=== PATIENT | female | born 1945 | race Caucasian/White ===

== ENCOUNTER 2016-07-19 12:59 | Inpatient (IN) | payer MEDICARE ==
[2016-07-19] MEDS ORDERED: ONDANSETRON HCL 4 MG/2 ML VIAL IV ONE (13:33)
[2016-07-19] MEDS ORDERED: NS 1,000 ML IV ONE (13:33)
[2016-07-19] MEDS ORDERED: SODIUM CHLORIDE 0.9% 10 ML FLUSH FLUSH PRN (13:33)
[2016-07-19] MEDS ORDERED: MORPHINE 4 MG/ML INJECTION IV ONE (13:33)
--- NOTE | 2016-07-19 13:36 | EDPRACDOC ---
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 Denies fever, earache, sore throat, congestion, cp, sob, abd pain, changes in bowel or bladder, rash. Pain Location: Reports: Lumbar Pain Radiates To: Reports: None Pain Caused By: Reports: Spontaneous Circumstances: Reports: Unknown Currently ?: No Pain Severity: Reports: Moderate Pain Quality: Reports: Aching Worsened By: Reports: Nothing Associated Signs and Symptoms: Reports: None <Michelle Valvedre - Last Filed: 07/19/16 15:54> <Jack Aguilar - Last Filed: 07/19/16 16:14> - General Information Chief Complaint: Back Pain Stated Complaint: BACK,FLANK PAIN Time Seen by Provider: 07/19/16 13:26 Home Medications: Home Medications Alprazolam 0.5 mg PO QID PRN 12/21/14 Fenofibrate 160 mg PO DAILY 12/21/14 Haloperidol 2 mg PO TID 12/21/14 Pravastatin Sodium 80 mg PO HS 12/21/14 Sertraline HCl 150 mg PO DAILY 12/21/14 Trazodone HCl 150 mg PO QHS 12/21/14 Verapamil HCl [Verapamil ER] 240 mg PO DAILY 12/21/14 Levothyroxine [Synthroid, Levoxyl] 125 mcg PO DAILY #30 tablet 01/01/15 Insulin Novolog 70/30 Mix [Novolog 70-30 Insulin Mix] 30 unit SQ BID 05/04/15 Amitriptyline HCl 150 mg PO QHS 03/30/16 Gabapentin 300 mg PO BID 03/30/16 Lisinopril [Zestril] 10 mg PO DAILY 03/30/16 Omeprazole [Prilosec] 20 mg PO DAILY 03/30/16 Trimethoprim 200 mg PO QHS 03/30/16 Zolpidem Tartrate [Ambien] 5 mg PO QHS PRN 07/19/16 Allergies/Adverse Reactions: Allergies Allergy/AdvReac Type Severity Reaction Status Date / Time Sulfa (Sulfonamide Allergy Mild RASH Verified 05/04/15 23:09 Antibiotics) [Sulfa(Sulfonamide Antibiotics)] ED Past Medical History - History Reviewed Yes Nurses notes reviewed and agree except as marked - Patient Medical History Neurological History: Reports: Dementia (Associated with behavioral issues, psychoses and hallucinations.) Cardiac History: Reports: Hypertension, Congestive Heart Failure, Cardiac Catheterization, Hypercholesterolemia Respiratory History: Reports: Asthma, COPD GI/ History: Reports: Urinary Tract Infection, Gastroesophageal Reflux Musculoskeletal History: Reports: Arthritis Psychological History: Reports: Anxiety, Schizophrenia (Verses dementia with behavioral issues as noted above.). Denies: Depression, Substance Use Disorder Systemic History: Reports: Anemia, Diabetes (type 2.), Hypothyroidism Surgical History: Reports: Hysterectomy, Cardiac Catheterization, Tonsillectomy/ Adnoidectomy ( CHILD), Other (None known.) - Family Medical History Reports: Hypertension, Diabetes, Cancer (BROTHER), Cardiac Disorders. Denies: Stroke - Social Medical History Smoking Status: Never smoker Social History: Denies: Substance Use Disorder ETOH: None Substance Abuse: None <Michelle Valverde - Last Filed: 07/19/16 15:54> EDM Review of Systems - Review of Systems Constitutional: Weakness Ears: No Symptoms Reported. negative: Pain, Hearing Loss, Drainage, Ear Pulling Throat: No Symptoms Reported. negative: Pain, Swelling Nose: No Symptoms Reported. negative: Congestion, Bleeding, Discharge, Injection, Swelling, Deformity, Ecchymosis, Tender, Abrasion, Laceration Mouth: No Symptoms Reported. negative: Pain, Drooling Respiratory: Cough Cardiovascular: No Symptoms Reported. negative: Chest Pain, Palpitations, Syncope, Edema, Orthopnea, PND, Skin Mottling, Cyanosis Gastrointestinal: No Symptoms Reported. negative: Pain, Constipation, Nausea, Vomiting, Diarrhea, Melena, Formula Intolerance Genitourinary: Flank Pain. negative: No Symptoms Reported, Bleeding, Dysuria, Discharge, Frequency, Hematuria, , Testicular Pain Neurological: No Symptoms Reported. negative: Headache, Dizziness, Seizure, Numbness, Weakness, Speech Difficulty, Gait Difficulty Musculoskeletal: Back Integumentary: No Symptoms Reported. negative: Itching, Rash, Bruising, Wound Allergic/Immunologic: No Symptoms Reported. negative: Hives, Itching Hematologic: No Symptoms Reported. negative: Lymphadenopathy, Easy Bruising, Easy Bleeding Psychiatric: No Symptoms Reported. negative: Anxiety, Depression, Hallucinations, Insomnia, Suicidal <Michelle Valverde - Last Filed: 07/19/16 15:54> - Physical Exam Constitutional: Alert Oriented to: Time, Person, Place Last recorded Vital Signs: Last Vital Signs Temp Pulse 81 07/19/16 13:09 Resp 16 07/19/16 13:09 BP 217/89 H 07/19/16 13:09 Pulse Ox 95 07/19/16 13:09 Oxygen Pulse Oxygen Saturation 95 O2 Device Oxygen Flow Rate Fraction of Inspired Oxygen ( FIO2) - HEENT Head: Normal ( normocephalic) Eye Exam: Normal (PERRL, EOMI, Sclera white) Oropharynx: Normal (Pharynx:Moist without exudate,Gums-no swelling) Tympanic Membrane: Normal ENT EAC: Normal Nose: No Symptoms Reported (septum midline) Neck: Normal (FROM, trachea at midline) - Respiratory/Cardiovascular Respiratory: Normal - CTA (BBS clear to auscultation without adventitious sounds ) Cardiovascular: Normal (RRR without murmur, gallop or rub) - GI Auscultation: Normal (NABS) Palpation: Normal (Soft,No rebound or guarding, non distended) Tenderness: Mild, Suprapubic - Musculoskeletal Back: Normal (Non-Tender) Extremities: Normal (Normal tone, Pulses 2+ No cyanosis or edema, FROM) - Integumentary Skin: Normal, Warm, Dry Lymphatics: Normal (no adenopathy) - Neurologic Memory Impaired: Normal Motor Function: Normal (Normal tone, Pulses 2+ No cyanosis or edema, FROM) Mood Description: Normal Perception: Normal <Michelle Valverde - Last Filed: 07/19/16 15:54> - Physical Exam Last recorded Vital Signs: Last Vital Signs Temp 98.9 F 07/19/16 14:46 Pulse 88 07/19/16 14:46 Resp 18 07/19/16 14:46 BP 170/76 07/19/16 14:46 Pulse Ox 96 07/19/16 14:46 Oxygen Pulse Oxygen Saturation 96 O2 Device Oxygen Flow Rate Fraction of Inspired Oxygen ( FIO2) <Jack Aguilar - Last Filed: 07/19/16 16:14> ED Back Exam - Neurologic Motor Deficit: None (strength 5/5, sensation nl) Reflexes: Normal (CN II-X11 intact) - Musculoskeletal Cervical: Normal Thoracic: Normal Lumbar: Normal Midline: Normal Paraspinous: Normal Straight Leg Raise: Negative Pelvis: Normal <Michelle aVlverde - Last Filed: 07/19/16 15:54> - Differential Diagnosis Musculoskeletal pain, Other (PNA, sepsis), Pyelonephritis, Strain, Urinary tract infection - Results 07/19/16 13:10 07/19/16 13:10 - EKG EKG #1 EKG Time: 13:47 Rate: bpm: 83 [place]: Normal Rhythm: NSR Block: None ST: Normal - Diagnostic Imaging Chest Image interpreted by: Radiologist IMPRESSION: No evidence of pulmonary emboli. No focal infiltrate or sizable effusion is seen. <Michelle Valverde - Last Filed: 07/19/16 15:54> - Results 07/19/16 13:10 07/19/16 13:10 WBC 5.3 xk/uL (3.8-10.8) 07/19/16 13:10 RBC 4.26 xM/uL (4.20-5.40) 07/19/16 13:10 Hgb 12.5 g/dL (12.0-16.0) 07/19/16 13:10 Hct 37.2 % (36-47) 07/19/16 13:10 MCV 87 fL (81-99) 07/19/16 13:10 MCH 29.4 pg (27-32) 07/19/16 13:10 MCHC 33.7 g/dl (33-36) 07/19/16 13:10 RDW 13.3 % (11.5-14.5) 07/19/16 13:10 Plt Count 242 xk/uL (130-400) 07/19/16 13:10 MPV 8.6 fL (7.4-10.4) 07/19/16 13:10 Neut % (Auto) 57.5 % (45-76) 07/19/16 13:10 Lymph % (Auto) 30.6 % (17-44) 07/19/16 13:10 [place] % (Auto) 6.8 % (3-10) 07/19/16 13:10 Eos % (Auto) 4.3 % (0-5) 07/19/16 13:10 Baso % (Auto) 0.8 % (0-2) 07/19/16 13:10 Absolute Neuts (auto) 3.02 xk/uL (1.7-8.2) 07/19/16 13:10 Absolute Lymphs (auto) 1.59 xk/uL (0.65-4.75) 07/19/16 13:10 PT 10.4 SEC (9.2-11.2) 07/19/16 13:10 INR 1.0 07/19/16 13:10 APTT 27.3 SEC (22-35) 07/19/16 13:10 Puncture Site Right radial 07/19/16 13:55 pH 7.440 pH UNITS (7.35-7.45) 07/19/16 13:55 pCO2 47.0 mmHg (35-45) H 07/19/16 13:55 pO2 56.0 mmHg (80-100) L 07/19/16 13:55 HCO3 31.9 MMOL/L (22-26) H 07/19/16 13:55 Total CO2 33.3 MMOL/L (23-27) H 07/19/16 13:55 Base Excess 6.6 (+/- 2) H 07/19/16 13:55 FiO2 % 21% 07/19/16 13:55 Specimen Drawn By Roude 07/19/16 13:55 Sodium 134 mEq/L (137-146) L 07/19/16 13:10 Potassium 4.2 mEq/L (3.5-5.1) 07/19/16 13:10 Chloride 92 mEq/L (98-107) L 07/19/16 13:10 Carbon Dioxide 31 mMOL/L (22-33) 07/19/16 13:10 Anion Gap 15 mEq/L (8-16) 07/19/16 13:10 BUN 8 MG/DL (7-17) 07/19/16 13:10 Creatinine 0.80 MG/DL (0.52-1.04) 07/19/16 13:10 Estimated GFR (MDRD) > 60 mL/min (>=60) 07/19/16 13:10 Glucose 159 MG/DL (70-99) H 07/19/16 13:10 Calculated Osmolality 259 MOs/Kg (270-290) L 07/19/16 13:10 Lactic Acid 0.8 mEq/L (0.7-2.1) 07/19/16 13:10 Calcium 9.9 MG/DL (8.4-10.2) 07/19/16 13:10 Total Bilirubin 0.7 MG/DL (0.2-1.3) 07/19/16 13:10 AST 29 IU/L (14-36) 07/19/16 13:10 ALT 29 IU/L (9-52) 07/19/16 13:10 Alkaline Phosphatase 72 IU/L (55-165) 07/19/16 13:10 Creatine Kinase 36 IU/L (30-134) 07/19/16 13:10 Troponin I < 0.01 ng/mL (<.04) 07/19/16 13:10 Sfd-[id number]-Llcdnqhqcmh Pept 165 pg/mL (0-900) 07/19/16 13:10 Total Protein 7.9 G/DL (6.3-8.2) 07/19/16 13:10 Albumin 4.5 G/DL (3.5-5.0) 07/19/16 13:10 Urine Color Bright yellow 07/19/16 13:17 Urine Clarity Clear 07/19/16 13:17 Urine pH 8.0 (5.0-8.0) 07/19/16 13:17 Ur Specific [place] 1.005 (1.003-1.035) 07/19/16 13:17 Urine Protein Neg (NEG/TRACE) 07/19/16 13:17 Urine Glucose (UA) Trace (NEGATIVE) 07/19/16 13:17 Urine Ketones Neg (NEGATIVE) 07/19/16 13:17 Urine Occult Blood 1+ (NEG/TRACE) H 07/19/16 13:17 Urine Nitrite Pos (NEGATIVE) H 07/19/16 13:17 Urine Bilirubin Neg (NEGATIVE) 07/19/16 13:17 Urine Urobilinogen <2.0 MG/DL (0-1) 07/19/16 13:17 Ur Leukocyte Esterase 1+ (NEGATIVE) H 07/19/16 13:17 Urine RBC 0-2 (0-5) 07/19/16 13:17 Urine WBC 10-20 (0-5) H 07/19/16 13:17 Ur Epithelial Cells Occ 07/19/16 13:17 Urine Bacteria 4+ (NEG/FEW) H 07/19/16 13:17 Lab Results 07/19/16 07/19/16 07/19/16 13:55 13:17 13:10 WBC RBC Hgb Hct MCV MCH MCHC RDW Plt Count MPV Neut % (Auto) Lymph % (Auto) [place] % (Auto) Eos % (Auto) Baso % (Auto) Absolute Neuts (auto) Absolute Lymphs (auto) PT 10.4 INR 1.0 APTT 27.3 Puncture Site Right radial pH 7.440 pCO2 47.0 H pO2 56.0 L HCO3 31.9 H Total CO2 33.3 H Base Excess 6.6 H FiO2 % 21% Specimen Drawn By Roude Sodium Potassium Chloride Carbon Dioxide Anion Gap BUN Creatinine Estimated GFR (MDRD) Glucose Calculated Osmolality Lactic Acid Calcium Total Bilirubin AST ALT Alkaline Phosphatase Creatine Kinase Troponin I Job-C-Mpspcxkxaem Pept Total Protein Albumin Urine Color Bright yellow Urine Clarity Clear Urine pH 8.0 Ur Specific [place] 1.005 Urine Protein Neg Urine Glucose (UA) Trace Urine Ketones Neg Urine Occult Blood 1+ H Urine Nitrite Pos H Urine Bilirubin Neg Urine Urobilinogen <2.0 Ur Leukocyte Esterase 1+ H Urine RBC 0-2 Urine WBC 10-20 H Ur Epithelial Cells Occ Urine Bacteria 4+ H 07/19/16 07/19/16 07/19/16 13:10 13:10 13:10 WBC 5.3 RBC 4.26 Hgb 12.5 Hct 37.2 MCV 87 MCH 29.4 MCHC 33.7 RDW 13.3 Plt Count 242 MPV 8.6 Neut % (Auto) 57.5 Lymph % (Auto) 30.6 [place] % (Auto) 6.8 Eos % (Auto) 4.3 Baso % (Auto) 0.8 Absolute Neuts (auto) 3.02 Absolute Lymphs (auto) 1.59 PT INR APTT Puncture Site pH pCO2 pO2 HCO3 Total CO2 Base Excess FiO2 % Specimen Drawn By Sodium 134 L Potassium 4.2 Chloride 92 L Carbon Dioxide 31 Anion Gap 15 BUN 8 Creatinine 0.80 Estimated GFR (MDRD) > 60 Glucose 159 H Calculated Osmolality 259 L Lactic Acid 0.8 Calcium 9.9 Total Bilirubin 0.7 AST 29 ALT 29 Alkaline Phosphatase 72 Creatine Kinase 36 Troponin I < 0.01 Zws-D-Lxadyyjdutm Pept 165 Total Protein 7.9 Albumin 4.5 Urine Color Urine Clarity Urine pH Ur Specific [place] Urine Protein Urine Glucose (UA) Urine Ketones Urine Occult Blood Urine Nitrite Urine Bilirubin Urine Urobilinogen Ur Leukocyte Esterase Urine RBC Urine WBC Ur Epithelial Cells Urine Bacteria <Aguilar,Jack - Last Filed: 07/19/16 16:14> <Michelle Valverde - Last Filed: 07/19/16 15:54> - Departure Yes I personally saw and evaluated the patient. Disposition: Admit IP To This Hospital Education/Counseling Given To: Patient Education/Counseling Given Regarding: Diagnosis, Treatment, Prognosis Decision to Admit Time: 16:14 Decision to admit date: 07/19/16 Decision to admit: from ED <Jack Aguilar - Last Filed: 07/19/16 16:14> - Departure Condition: Fair Final Diagnosis: Hypoxia UTI (urinary tract infection) Qualifiers: Urinary tract infection type: acute cystitis Hematuria presence: without hematuria Qualified Code(s): N30.00 - Acute cystitis without hematuria COPD (chronic obstructive pulmonary disease) Qualifiers: COPD type: unspecified COPD Qualified Code(s): J44.9 - Chronic obstructive pulmonary disease, unspecified Altered mental status Qualifiers: Altered mental status type: delirium Qualified Code(s): R41.0 - Disorientation , unspecified Instructions: Urinary Tract Infection in Women (ED), Dysuria Referrals: Cecilia Jose MD [Primary Care Provider] - One Week Prescriptions: No Action Pravastatin Sodium 80 mg PO HS Haloperidol 2 mg PO TID Alprazolam 0.5 mg PO QID PRN PRN Reason: Anxiety Sertraline HCl 150 mg PO DAILY Verapamil HCl [Verapamil ER] 240 mg PO DAILY Trazodone HCl 150 mg PO QHS Fenofibrate 160 mg PO DAILY Levothyroxine [Synthroid, Levoxyl] 125 mcg PO DAILY #30 tablet Insulin Novolog 70/30 Mix [Novolog 70-30 Insulin Mix] 30 unit SQ BID Lisinopril [Zestril] 10 mg PO DAILY Gabapentin 300 mg PO BID Amitriptyline HCl 150 mg PO QHS Trimethoprim 200 mg PO QHS Omeprazole [Prilosec] 20 mg PO DAILY Zolpidem Tartrate [Ambien] 5 mg PO QHS PRN PRN Reason: Sleep Or Insomnia
[2016-07-19 13:48] LABS: AUTOMATED BASOPHIL 0.8 % (0-2); AUTOMATED EOSINOPHIL 4.3 % (0-5); AUTOMATED LYMPH 30.6 % (17-44); AUTOMATED MONOCYTE 6.8 % (3-10); AUTOMATED NEUTROPHIL 57.5 % (45-76); MPV 8.6 fL (7.4-10.4)
[2016-07-19 13:56] LABS: BLOOD UREA NITROGEN 8 MG/DL (7-17); CALCIUM 9.9 MG/DL (8.4-10.2); CALCULATED OSMOLALITY 259 MOs/Kg (270-290); CHLORIDE 92 mEq/L (98-107); CPK TOTAL WITH POSSIBLE MB 36 IU/L (30-134); GLUCOSE 159 MG/DL (70-99); SODIUM LEVEL 134 mEq/L (137-146); TOTAL PROTEIN 7.9 G/DL (6.3-8.2)
[2016-07-19 14:00] LABS: PARTIAL THROMB. TIME 27.3 SEC (22-35)
[2016-07-19] MEDS ORDERED: NS 1,000 ML IV SCH (14:00)
[2016-07-19 14:01] LABS: ABG Draw Site Right Radial; ALLEN'S TEST PASS; BEb 6.6 (+/- 2); TCO2 33.3 MMOL/L (23-27)
[2016-07-19 14:10] LABS: LEUKOCYTES/URINE 1+ (NEGATIVE); RBC/URINE 0-2 (0-5); URINE OCCULT BLOOD 1+ (NEG/TRACE)
[2016-07-19 14:23] LABS: NITRITE/URINE POS (NEGATIVE)
--- NOTE | 2016-07-19 14:34 | DIRPT ---
CLINICAL DATA: Low back pain and difficulty urinating, possible sepsis EXAM: PORTABLE CHEST 1 VIEW COMPARISON: 03/30/2016 FINDINGS: The heart size and mediastinal contours are within normal limits. Both lungs are clear. The visualized skeletal structures are unremarkable. IMPRESSION: No active disease. Electronically Signed By: Nate Persaud M.D. On: 07/19/2016 14:31
[2016-07-19] MEDS ORDERED: Pharmacy Review for Metformin - IV Contrast Given SCH (15:00)
[2016-07-19] MEDS ORDERED: CEFTRIAXONE 1 GM in D5W 100 ML IV ONE (15:15)
--- NOTE | 2016-07-19 15:45 | DIRPT ---
CLINICAL DATA: Chest and back pain for 1 day EXAM: CT ANGIOGRAPHY CHEST WITH CONTRAST TECHNIQUE: Multidetector CT imaging of the chest was performed using the standard protocol during bolus administration of intravenous contrast. Multiplanar CT image reconstructions and MIPs were obtained to evaluate the vascular anatomy. CONTRAST: 100 mL Isovue 370. COMPARISON: Chest x-ray from earlier in the same day FINDINGS: The lungs are well aerated bilaterally. No focal infiltrate or sizable effusion is noted. The thoracic inlet is within normal limits. The thoracic aorta shows aortic calcifications without aneurysmal dilatation or focal dissection. Pulmonary artery shows a normal branching pattern without evidence of pulmonary emboli. No hilar or mediastinal adenopathy is noted. Mild coronary calcifications are seen. Scanning into the upper abdomen reveals no acute abnormality. Bony structures show degenerative change of the thoracic spine. No acute bony abnormality is noted. Review of the MIP images confirms the above findings. IMPRESSION: No evidence of pulmonary emboli. No focal infiltrate or sizable effusion is seen. Electronically Signed By: Nate Persaud M.D. On: 07/19/2016 15:42
[2016-07-19] MEDS ORDERED: Albuterol/Ipratropium Neb 3 ML NEB NEB PRN (16:51)
[2016-07-19] MEDS ORDERED: Docusate Sodium 100 MG CAP PO PRN (16:51)
[2016-07-19] MEDS ORDERED: MAGNESIUM HYDROXIDE 30 ML BOTTLE PO PRN (16:51)
[2016-07-19] MEDS ORDERED: ZOLPIDEM TARTRATE 5 MG TAB PO PRN (16:51)
[2016-07-19] MEDS ORDERED: GUAIFENESIN 200 MG/10 ML UDC PO PRN (16:51)
[2016-07-19] MEDS ORDERED: BENZONATATE 100 MG PERLES PO PRN (16:51)
[2016-07-19] MEDS ORDERED: GLUCAGON 1 MG VIAL SQ PRN (16:51)
[2016-07-19] MEDS ORDERED: DEXTROSE 25 GM/50 ML PFS IV PRN (16:51)
[2016-07-19] MEDS ORDERED: ONDANSETRON HCL 4 MG/2 ML VIAL IV PRN (16:51)
--- NOTE | 2016-07-19 16:51 | HISTPHYS ---
- Chief Complaint altered mental status, weakness - History of Present Illness Ms Beauchamp is a 71-year-old white female with multiple chronic medical problems who is brought to the emergency room by her with several days of worsening mental status and declining ambulatory function. He says this is similar to admission to the hospital back in March when she had a urinary tract infection and became very weak. At that time she had to go for short- term rehab post discharge. She has been home and has been ambulatory up until this past week. He says baseline her cognitive status is normal. In the emergency room she does have a urinary tract infection. She is confused and unable to provide any history. Given her mental status changes and urinary tract infection she will be admitted to the hospital for further evaluation and management - Medical History Cardiac History: Reports: Hypertension, Congestive Heart Failure, Cardiac Catheterization, Hypercholesterolemia Respiratory History: Reports: Asthma, COPD GI/ History: Reports: Urinary Tract Infection, Gastroesophageal Reflux Musculoskeletal History: Reports: Arthritis Systemic History: Reports: Anemia, Diabetes (type 2.), Hypothyroidism Neurological History: Reports: Dementia (Associated with behavioral issues, psychoses and hallucinations.) Psychological History: Reports: Anxiety, Schizophrenia (Verses dementia with behavioral issues as noted above.). Denies: Depression, Substance Use Disorder - Surgical History Reports: Hysterectomy, Cardiac Catheterization, Tonsillectomy/Adnoidectomy ( CHILD), Other (None known.) - Medictions/Allergies Allergies Sulfa (Sulfonamide Antibiotics) [Sulfa(Sulfonamide Antibiotics)] Allergy (Mild, Verified 05/04/15 23:09) RASH Home Medications Alprazolam 0.5 mg PO QID PRN 12/21/14 Fenofibrate 160 mg PO DAILY 12/21/14 Haloperidol 2 mg PO TID 12/21/14 Pravastatin Sodium 80 mg PO HS 12/21/14 Sertraline HCl 150 mg PO DAILY 12/21/14 Trazodone HCl 150 mg PO QHS 12/21/14 Verapamil HCl [Verapamil ER] 240 mg PO DAILY 12/21/14 Levothyroxine [Synthroid, Levoxyl] 125 mcg PO DAILY #30 tablet 01/01/15 Insulin Novolog 70/30 Mix [Novolog 70-30 Insulin Mix] 30 unit SQ BID 05/04/15 Amitriptyline HCl 150 mg PO QHS 03/30/16 Gabapentin 300 mg PO BID 03/30/16 Lisinopril [Zestril] 10 mg PO DAILY 03/30/16 Omeprazole [Prilosec] 20 mg PO DAILY 03/30/16 Trimethoprim 200 mg PO QHS 03/30/16 Zolpidem Tartrate [Ambien] 5 mg PO QHS PRN 07/19/16 - Family History Reports: Hypertension, Diabetes, Cancer (BROTHER), Cardiac Disorders. Denies: Stroke - Social History Lives: with Spouse Smoking Status: Never smoker Social History: Denies: Alcohol Use, Substance Use Disorder - Review of Systems Yes Review of systems cannot be obtained due to the patient's medical condition (Altered mental status) Constitutional: Weakness - Physical Exam Constitutional: Alert, Distress. negative: Well appearing (Acutely ill- appearing) Oriented to: Person, Not Oriented Exam: Last Vital Signs Temp 98.9 F 07/19/16 14:46 Pulse 88 07/19/16 14:46 Resp 18 07/19/16 14:46 BP 170/76 07/19/16 14:46 Pulse Ox 96 07/19/16 14:46 Intake & Output 07/19/16 07/19/16 07/19/16 07:59 15:59 23:59 Patient's weight 83.007 kg - HEENT Head: Normal ( normocephalic) Eye: Normal (PERRL, EOMI, Sclera white) Oropharynx: Normal (Pharynx:Moist without exudate,Gums-no swelling) Tympanic Membrane: Normal ENT EAC: Normal Nose: No Symptoms Reported (septum midline) - Respiratory/Cardiovascular Respiratory: Normal - CTA (BBS clear to auscultation without adventitious sounds ). negative: Rhonchi Cardiovascular: Normal - GI Auscultation: Normal (NABS) Palpation: Normal (Soft,No rebound or guarding, non distended) Tenderness: Mild, Suprapubic - Musculoskeletal Back: Normal (Non-Tender). negative: Abrasion Extremities: Normal (Normal tone, Pulses 2+ No cyanosis or edema, FROM) - Integumentary Skin: Normal, Warm, Dry Lymphatics: Normal (no adenopathy). negative: Adenopathy - Neurologic Memory Impaired: Short-term. negative: Long-term Motor Function: Normal Cranial Nerve: Normal Cerebellar: Normal Mood Description: Normal Thought: Coherent Perception: Normal - Focused CV Perfusion Exam Vital Signs: Last Vital Signs Temp 98.9 F 07/19/16 14:46 Pulse 88 07/19/16 14:46 Resp 18 07/19/16 14:46 BP 170/76 07/19/16 14:46 Pulse Ox 96 07/19/16 14:46 - Lab Results Laboratory Results - last 24 hr 07/19/16 07/19/16 07/19/16 13:10 13:10 13:10 WBC 5.3 RBC 4.26 Hgb 12.5 Hct 37.2 MCV 87 MCH 29.4 MCHC 33.7 RDW 13.3 Plt Count 242 MPV 8.6 Neut % (Auto) 57.5 Lymph % (Auto) 30.6 [place] % (Auto) 6.8 Eos % (Auto) 4.3 Baso % (Auto) 0.8 Absolute Neuts (auto) 3.02 Absolute Lymphs (auto) 1.59 PT INR APTT Puncture Site pH pCO2 pO2 HCO3 Total CO2 Base Excess FiO2 % Specimen Drawn By Sodium 134 L Potassium 4.2 Chloride 92 L Carbon Dioxide 31 Anion Gap 15 BUN 8 Creatinine 0.80 Estimated GFR (MDRD) > 60 Glucose 159 H Calculated Osmolality 259 L Lactic Acid 0.8 Calcium 9.9 Total Bilirubin 0.7 AST 29 ALT 29 Alkaline Phosphatase 72 Creatine Kinase 36 Troponin I < 0.01 Ihs-S-Yjhlagkqpwk Pept 165 Total Protein 7.9 Albumin 4.5 Urine Color Urine Clarity Urine pH Ur Specific [place] Urine Protein Urine Glucose (UA) Urine Ketones Urine Occult Blood Urine Nitrite Urine Bilirubin Urine Urobilinogen Ur Leukocyte Esterase Urine RBC Urine WBC Ur Epithelial Cells Urine Bacteria 07/19/16 07/19/16 07/19/16 13:10 13:17 13:55 WBC RBC Hgb Hct MCV MCH MCHC RDW Plt Count MPV Neut % (Auto) Lymph % (Auto) [place] % (Auto) Eos % (Auto) Baso % (Auto) Absolute Neuts (auto) Absolute Lymphs (auto) PT 10.4 INR 1.0 APTT 27.3 Puncture Site Right radial pH 7.440 pCO2 47.0 H pO2 56.0 L HCO3 31.9 H Total CO2 33.3 H Base Excess 6.6 H FiO2 % 21% Specimen Drawn By Roude Sodium Potassium Chloride Carbon Dioxide Anion Gap BUN Creatinine Estimated GFR (MDRD) Glucose Calculated Osmolality Lactic Acid Calcium Total Bilirubin AST ALT Alkaline Phosphatase Creatine Kinase Troponin I Izx-Z-Wizrztayeow Pept Total Protein Albumin Urine Color Bright yellow Urine Clarity Clear Urine pH 8.0 Ur Specific [place] 1.005 Urine Protein Neg Urine Glucose (UA) Trace Urine Ketones Neg Urine Occult Blood 1+ H Urine Nitrite Pos H Urine Bilirubin Neg Urine Urobilinogen <2.0 Ur Leukocyte Esterase 1+ H Urine RBC 0-2 Urine WBC 10-20 H Ur Epithelial Cells Occ Urine Bacteria 4+ H - Assessment (1) Metabolic encephalopathy G93.41 - METABOLIC ENCEPHALOPATHY Acute Present on Admission: Yes Very confused and unable to provide any history. Likely due to urinary tract infection. IV fluids and supportive care. IV antibiotics (2) UTI (urinary tract infection) N39.0 - URINARY TRACT INFECTION, SITE NOT SPECIFIED Acute Present on Admission: Yes Qualifiers: Urinary tract infection type: acute cystitis Hematuria presence: without hematuria Indwelling urinary catheter type: I Encounter type: E Qualified Code(s): N30.00 - Acute cystitis without hematuria IV Rocephin. IV fluids and monitor cultures. Likely the source of mental status changes and hopefully will improve with hydration and treatment (3) Hypoxia R09.02 - HYPOXEMIA Acute Present on Admission: Yes Suspect that this is due to infection chronic medications. CT of chest shows no acute abnormalities. (4) COPD (chronic obstructive pulmonary disease) J44.9 - CHRONIC OBSTRUCTIVE PULMONARY DISEASE, UNSPECIFIED Acute Present on Admission: Yes Qualifiers: COPD type: unspecified COPD Chronic bronchitis type: C Emphysema type: E Qualified Code(s): J44.9 - Chronic obstructive pulmonary disease, unspecified No symptoms at present however she is moderately hypoxic. Continue current medications, nebulizer treatments as needed. Oxygen support
[2016-07-19] MEDS ORDERED: NOVOLOG 70/30 MIX 100 UNITS/ML PEN SQ SCH (18:00)
[2016-07-19 18:05] VITALS: BMI 33.1
[2016-07-19] MEDS: NS/KCl 20 mEq 1,000 ML IV SCH (18:18)
[2016-07-19] MEDS: REGULAR INSULIN 100 UNITS/ML - 3 ML VIAL SQ SCH ×2 (18:22→20:40)
[2016-07-19] MEDS: ENOXAPARIN 40 MG/0.4 ML PFS SQ SCH (18:22)
[2016-07-19] MEDS: NOVOLOG 70/30 MIX 100 UNITS/ML PEN SQ SCH (18:22)
[2016-07-19] MEDS ORDERED: Vaccine Screening Complete SCH (19:00)
[2016-07-19] MEDS: GABAPENTIN 300 MG CAP PO SCH (20:34)
[2016-07-19] MEDS: TRAZODONE 50 MG TAB PO SCH (20:35)
[2016-07-19] MEDS: HALOPERIDOL 1 MG TAB PO SCH (20:35)
[2016-07-19] MEDS: PRAVASTATIN 80 MG TABLET PO SCH (20:35)
[2016-07-19] MEDS: AMITRIPTYLINE 50 MG TAB PO SCH (20:35)
[2016-07-19] MEDS: ACETAMINOPHEN 325 MG/TAB TABLET PO PRN (20:38)
[2016-07-19] MEDS ORDERED: AMITRIPTYLINE HCL 150 MG PO SCH (21:00)
[2016-07-19] MEDS ORDERED: HALOPERIDOL 2 MG PO SCH (21:00)
[2016-07-19] MEDS ORDERED: INSULIN ASPART PROTAMINE SQ SCH (21:00)
[2016-07-19] MEDS ORDERED: INSULIN ASPART SQ SCH (21:00)
[2016-07-19] MEDS ORDERED: [UNRECOGNIZED DRUG - OTHER] SQ SCH (21:00)
[2016-07-20] MEDS: NS/KCl 20 mEq 1,000 ML IV SCH ×5 (04:07→21:09)
[2016-07-20] MEDS: HALOPERIDOL 1 MG TAB PO SCH ×3 (05:31→20:44)
[2016-07-20] MEDS: LEVOTHYROXINE 125 MCG (0.125 MG) TAB PO SCH (05:31)
[2016-07-20] MEDS: PANTOPRAZOLE 40 MG TAB PO SCH (05:31)
[2016-07-20] MEDS: REGULAR INSULIN 100 UNITS/ML - 3 ML VIAL SQ SCH ×4 (05:32→20:45)
[2016-07-20] MEDS: NOVOLOG 70/30 MIX 100 UNITS/ML PEN SQ SCH ×2 (05:36→17:20)
[2016-07-20 07:19] LABS: MPV 8.5 fL (7.4-10.4)
[2016-07-20 07:41] LABS: BLOOD UREA NITROGEN 11 MG/DL (7-17); CALCIUM 8.5 MG/DL (8.4-10.2); CALCULATED OSMOLALITY 260 MOs/Kg (270-290); CHLORIDE 102 mEq/L (98-107); GLUCOSE 78 MG/DL (70-99); SODIUM LEVEL 136 mEq/L (137-146)
[2016-07-20] MEDS: Verapamil 120 MG TAB PO SCH (08:33)
[2016-07-20] MEDS: LISINOPRIL 10 MG TAB PO SCH (08:33)
[2016-07-20] MEDS: SERTRALINE HCL 100 MG TAB PO SCH (08:35)
[2016-07-20] MEDS: FENOFIBRATE 145 MG TAB PO SCH (08:35)
[2016-07-20] MEDS: GABAPENTIN 300 MG CAP PO SCH ×2 (08:36→20:45)
[2016-07-20] MEDS ORDERED: Non-Formulary Medication ITEM (Fenofibrate [Fenofibrate] 160 MG) PO SCH (09:00)
[2016-07-20] MEDS ORDERED: Non-Formulary Medication ITEM (Omeprazole 20 MG) PO SCH (09:00)
[2016-07-20] MEDS ORDERED: VERAPAMIL HCL 240 MG PO SCH (09:00)
--- NOTE | 2016-07-20 14:02 | GENMEDPROG ---
Chief Complaint: More alert but still confused. Preliminary urine culture with E coli. Denies pain currently. Notes Reviewed: Yes Events from last night noted and discussed with Clinical Staff Current Medication List: Reviewed Currently: Reports: Abdominal Pain. Denies: Cough, Wheezing, MICHAUD, SOB, Nausea and Vomiting, Chest Pain - Physical Examination Vital Signs and I&O: Last Vital Signs Temp 98.7 F 07/20/16 10:00 Pulse 87 07/20/16 10:00 Resp 18 07/20/16 10:00 BP 128/59 L 07/20/16 10:00 Pulse Ox 95 07/20/16 10:00 Oxygen Pulse Oxygen Saturation 95 O2 Device Nasal Cannula Oxygen Flow Rate 2 Fraction of Inspired Oxygen ( 29 FIO2) Intake & Output 07/17/16 07/18/16 07/19/16 07/20/16 23:59 23:59 23:59 23:59 Intake Total 1250 1959 Output Total 650 Balance 1250 1309 Patient's weight 82.242 kg General: Alert, Cooperative, No acute distress, Well nourished. negative: Oriented x3, Well appearing (Chronically ill-appearing) HEENT: Normal, PERRLA, EOMI Neck: Non-tender, Full range of motion. negative: JVD Lymphatics: Normal (no adenopathy). negative: Adenopathy Respiratory: Normal - CTA (BBS clear to auscultation without adventitious sounds ). negative: Rhonchi Cardiovascular: Regular rate and rhythm, No Gallops,Rubs/Murmurs GI: Normal bowel sounds, Soft, Non tender, No hepatospenomegaly Extremities/Musculoskeletal: Normal pulses. negative: Tenderness, Swelling, Edema Skin: Warm,Dry and Intact. negative: No rashes, No significant lesion Neurological: Normal speech, Strength at 5/5 X4 ext, Normal tone Psych/Mental Status: Confused Lab/DI/Studies Reviewed: Laboratory Results - last 24 hr 07/19/16 07/19/16 07/19/16 13:10 13:10 13:10 WBC RBC Hgb Hct MCV MCH MCHC RDW Plt Count MPV PT 10.4 INR 1.0 APTT 27.3 Puncture Site pH pCO2 pO2 HCO3 Total CO2 Base Excess FiO2 % Specimen Drawn By Sodium 134 L Potassium 4.2 Chloride 92 L Carbon Dioxide 31 Anion Gap 15 BUN 8 Creatinine 0.80 Estimated GFR (MDRD) > 60 Glucose 159 H POC Capillary Glucose Hemoglobin A1c Calculated Osmolality 259 L Lactic Acid 0.8 Calcium 9.9 Total Bilirubin 0.7 AST 29 ALT 29 Alkaline Phosphatase 72 Creatine Kinase 36 Troponin I < 0.01 [id number]-[id number] Pept 165 Total Protein 7.9 Albumin 4.5 Urine Color Urine Clarity Urine pH Ur Specific [place] Urine Protein Urine Glucose (UA) Urine Ketones Urine Occult Blood Urine Nitrite Urine Bilirubin Urine Urobilinogen Ur Leukocyte Esterase Urine RBC Urine WBC Ur Epithelial Cells Urine Bacteria 07/19/16 07/19/16 07/19/16 13:10 13:17 13:55 WBC RBC Hgb Hct MCV MCH MCHC RDW Plt Count MPV PT INR APTT Puncture Site Right radial pH 7.440 pCO2 47.0 H pO2 56.0 L HCO3 31.9 H Total CO2 33.3 H Base Excess 6.6 H FiO2 % 21% Specimen Drawn By Roude Sodium Potassium Chloride Carbon Dioxide Anion Gap BUN Creatinine Estimated GFR (MDRD) Glucose POC Capillary Glucose Hemoglobin A1c 6.0 H Calculated Osmolality Lactic Acid Calcium Total Bilirubin AST ALT Alkaline Phosphatase Creatine Kinase Troponin I [id number]-Suqjrhcqmfq Pept Total Protein Albumin Urine Color Bright yellow Urine Clarity Clear Urine pH 8.0 Ur Specific [place] 1.005 Urine Protein Neg Urine Glucose (UA) Trace Urine Ketones Neg Urine Occult Blood 1+ H Urine Nitrite Pos H Urine Bilirubin Neg Urine Urobilinogen <2.0 Ur Leukocyte Esterase 1+ H Urine RBC 0-2 Urine WBC 10-20 H Ur Epithelial Cells Occ Urine Bacteria 4+ H 07/19/16 07/19/16 07/19/16 17:10 18:00 20:26 WBC RBC Hgb Hct MCV MCH MCHC RDW Plt Count MPV PT INR APTT Puncture Site pH pCO2 pO2 HCO3 Total CO2 Base Excess FiO2 % Specimen Drawn By Sodium Potassium Chloride Carbon Dioxide Anion Gap BUN Creatinine Estimated GFR (MDRD) Glucose POC Capillary Glucose 138 H 134 H Hemoglobin A1c Calculated Osmolality Lactic Acid Calcium Total Bilirubin AST ALT Alkaline Phosphatase Creatine Kinase Troponin I < 0.01 [id number]-Baamfjhgvwr Pept Total Protein Albumin Urine Color Urine Clarity Urine pH Ur Specific [place] Urine Protein Urine Glucose (UA) Urine Ketones Urine Occult Blood Urine Nitrite Urine Bilirubin Urine Urobilinogen Ur Leukocyte Esterase Urine RBC Urine WBC Ur Epithelial Cells Urine Bacteria 07/20/16 07/20/16 07/20/16 05:12 06:13 06:13 WBC 7.5 RBC 3.26 L Hgb 9.8 L D Hct 28.9 L MCV 89 MCH 29.9 MCHC 33.7 RDW 12.9 Plt Count 214 MPV 8.5 PT INR APTT Puncture Site pH pCO2 pO2 HCO3 Total CO2 Base Excess FiO2 % Specimen Drawn By Sodium 136 L Potassium 4.5 Chloride 102 Carbon Dioxide 29 Anion Gap 10 BUN 11 Creatinine 0.90 Estimated GFR (MDRD) > 60 Glucose 78 POC Capillary Glucose 80 Hemoglobin A1c Calculated Osmolality 260 L Lactic Acid Calcium 8.5 Total Bilirubin AST ALT Alkaline Phosphatase Creatine Kinase Troponin I [id number]-Jfaxloypkex Pept Total Protein Albumin Urine Color Urine Clarity Urine pH Ur Specific [place] Urine Protein Urine Glucose (UA) Urine Ketones Urine Occult Blood Urine Nitrite Urine Bilirubin Urine Urobilinogen Ur Leukocyte Esterase Urine RBC Urine WBC Ur Epithelial Cells Urine Bacteria 07/20/16 11:18 WBC RBC Hgb Hct MCV MCH MCHC RDW Plt Count MPV PT INR APTT Puncture Site pH pCO2 pO2 HCO3 Total CO2 Base Excess FiO2 % Specimen Drawn By Sodium Potassium Chloride Carbon Dioxide Anion Gap BUN Creatinine Estimated GFR (MDRD) Glucose POC Capillary Glucose 176 H Hemoglobin A1c Calculated Osmolality Lactic Acid Calcium Total Bilirubin AST ALT Alkaline Phosphatase Creatine Kinase Troponin I [id number]-Iokfpspjfyf Pept Total Protein Albumin Urine Color Urine Clarity Urine pH Ur Specific [place] Urine Protein Urine Glucose (UA) Urine Ketones Urine Occult Blood Urine Nitrite Urine Bilirubin Urine Urobilinogen Ur Leukocyte Esterase Urine RBC Urine WBC Ur Epithelial Cells Urine Bacteria - Assessment (1) Metabolic encephalopathy Acute G93.41 - METABOLIC ENCEPHALOPATHY Comment/Plan: Some better today. Much more alert and interactive. She is still confused but does appear to be improving. Continue IV fluids, IV antibiotics and supportive care. (2) UTI (urinary tract infection) Acute N39.0 - URINARY TRACT INFECTION, SITE NOT SPECIFIED Qualifiers: Urinary tract infection type: acute cystitis Hematuria presence: without hematuria Indwelling urinary catheter type: I Encounter type: E Qualified Code(s): N30.00 - Acute cystitis without hematuria Comment/Plan: Preliminary urine culture with E coli. Continue IV Rocephin and adjust pending sensitivities. Suspect as cause of delirium (3) Hypoxia Acute R09.02 - HYPOXEMIA Comment/Plan: Suspect that this is due to infection chronic medications. CT of chest shows no acute abnormalities. (4) COPD (chronic obstructive pulmonary disease) Acute J44.9 - CHRONIC OBSTRUCTIVE PULMONARY DISEASE, UNSPECIFIED Qualifiers: COPD type: unspecified COPD Chronic bronchitis type: C Emphysema type: E Qualified Code(s): J44.9 - Chronic obstructive pulmonary disease, unspecified Comment/Plan: No distress currently. She does wear oxygen at home. (5) Anemia Acute D64.9 - ANEMIA, UNSPECIFIED Qualifiers: Anemia type: unspecified type Iron deficiency anemia type: I Vitamin B12 deficiency anemia type: V Folate deficiency anemia type: F Bone marrow failure anemia type: B Hemolytic anemia type: H Other causes of anemia: O Qualified Code(s): D64.9 - Anemia, unspecified Comment/Plan: Likely dilutional component due to dehydration. Continue IV fluids and monitor for active bleeding. Abdomen exam is benign Case Care Discussed with: Patient, Nursing Staff, Physical Therapy, Resource Management, Respiratory Therapy, Rubber Press Tender
[2016-07-20] MEDS: CEFTRIAXONE 1 GM in D5W 100 ML IV SCH (15:47)
[2016-07-20] MEDS: ENOXAPARIN 40 MG/0.4 ML PFS SQ SCH (17:20)
[2016-07-20] MEDS: ACETAMINOPHEN 325 MG/TAB TABLET PO PRN (17:55)
[2016-07-20] MEDS: TRAZODONE 50 MG TAB PO SCH (20:44)
[2016-07-20] MEDS: AMITRIPTYLINE 50 MG TAB PO SCH (20:44)
[2016-07-20] MEDS: PRAVASTATIN 80 MG TABLET PO SCH (20:45)
[2016-07-21] MEDS: NS/KCl 20 mEq 1,000 ML IV SCH ×5 (00:09→20:26)
[2016-07-21] MEDS: HALOPERIDOL 1 MG TAB PO SCH ×3 (05:18→20:55)
[2016-07-21] MEDS: PANTOPRAZOLE 40 MG TAB PO SCH (05:19)
[2016-07-21] MEDS: LEVOTHYROXINE 125 MCG (0.125 MG) TAB PO SCH (05:19)
[2016-07-21] MEDS: NOVOLOG 70/30 MIX 100 UNITS/ML PEN SQ SCH ×2 (05:42→17:18)
[2016-07-21] MEDS: REGULAR INSULIN 100 UNITS/ML - 3 ML VIAL SQ SCH ×4 (05:42→21:05)
[2016-07-21] MEDS: LISINOPRIL 10 MG TAB PO SCH (07:46)
[2016-07-21] MEDS: GABAPENTIN 300 MG CAP PO SCH ×2 (07:47→20:55)
[2016-07-21] MEDS: Verapamil 120 MG TAB PO SCH (07:47)
[2016-07-21] MEDS: FENOFIBRATE 145 MG TAB PO SCH (07:47)
[2016-07-21] MEDS: SERTRALINE HCL 100 MG TAB PO SCH (07:47)
[2016-07-21] MEDS: CEFTRIAXONE 1 GM in D5W 100 ML IV SCH (15:15)
--- NOTE | 2016-07-21 15:47 | GENMEDPROG ---
Chief Complaint: More alert but still mildly confused. Urine culture with multidrug resistant E coli. Remains weak. Notes Reviewed: Yes: Events from last night noted and discussed with Clinical Staff Current Medication List: Reviewed Currently: Reports: Abdominal Pain. Denies: Cough, Wheezing, MICHAUD, SOB, Nausea and Vomiting, Chest Pain - Physical Examination Vital Signs and I&O: Last Vital Signs Temp 97.8 F 07/21/16 14:30 Pulse 84 07/21/16 14:30 Resp 20 07/21/16 14:30 BP 169/81 07/21/16 14:30 Pulse Ox 97 07/21/16 14:30 Oxygen Pulse Oxygen Saturation 97 O2 Device Nasal Cannula Oxygen Flow Rate 2 Fraction of Inspired Oxygen ( 29 FIO2) Intake & Output 07/18/16 07/19/16 07/20/16 07/21/16 23:59 23:59 23:59 23:59 Intake Total 1250 3842 1081 Output Total 2650 3150 Balance 1250 1192 -2069 Patient's weight 82.242 kg 82.242 kg 83.489 kg General: Alert, Cooperative, No acute distress, Well nourished. negative: Oriented x3, Well appearing (Chronically ill-appearing) HEENT: Normal, PERRLA, EOMI Neck: Non-tender, Full range of motion. negative: JVD Lymphatics: Normal (no adenopathy). negative: Adenopathy Respiratory: Normal - CTA (BBS clear to auscultation without adventitious sounds ). negative: Rhonchi Cardiovascular: Regular rate and rhythm, No Gallops,Rubs/Murmurs GI: Normal bowel sounds, Soft, Non tender, No hepatospenomegaly Extremities/Musculoskeletal: Normal pulses. negative: Tenderness, Swelling, Edema Skin: Warm,Dry and Intact. negative: No rashes, No significant lesion Neurological: Normal speech, Strength at 5/5 X4 ext, Normal tone Psych/Mental Status: Confused Lab/DI/Studies Reviewed: Laboratory Results - last 24 hr 07/19/16 07/20/16 07/20/16 13:17 16:44 20:29 POC Capillary Glucose 139 H 122 H Ur Random Microalbumin 6.9 07/21/16 07/21/16 05:09 11:47 POC Capillary Glucose 109 H 173 H Ur Random Microalbumin - Assessment (1) Metabolic encephalopathy Acute G93.41 - METABOLIC ENCEPHALOPATHY Comment/Plan: Still confused but increasingly alert and interactive. Remains weak and disabled. Urine culture with multidrug resistant E coli. Continue IV fluids and IV Rocephin (2) UTI (urinary tract infection) Acute N39.0 - URINARY TRACT INFECTION, SITE NOT SPECIFIED Qualifiers: Urinary tract infection type: acute cystitis Hematuria presence: without hematuria Qualified Code(s): N30.00 - Acute cystitis without hematuria Comment/Plan: Urine culture with multidrug resistant E coli. Continue IV Rocephin. Suspect as cause of mental status changes. (3) Hypoxia Acute R09.02 - HYPOXEMIA Comment/Plan: Suspect that this is due to infection and chronic medications. CT of chest shows no acute abnormalities. (4) COPD (chronic obstructive pulmonary disease) Acute J44.9 - CHRONIC OBSTRUCTIVE PULMONARY DISEASE, UNSPECIFIED Qualifiers: COPD type: unspecified COPD Qualified Code(s): J44.9 - Chronic obstructive pulmonary disease, unspecified Comment/Plan: No distress currently. She does wear oxygen at home. (5) Anemia Acute D64.9 - ANEMIA, UNSPECIFIED Qualifiers: Anemia type: unspecified type Qualified Code(s): D64.9 - Anemia, unspecified Comment/Plan: Likely dilutional component due to dehydration. Continue IV fluids and monitor for active bleeding. Abdomen exam is benign Case Care Discussed with: Patient, Family, Nursing Staff, Resource Management, Respiratory Therapy
[2016-07-21] MEDS: ENOXAPARIN 40 MG/0.4 ML PFS SQ SCH (17:18)
[2016-07-21] MEDS: AMITRIPTYLINE 50 MG TAB PO SCH (20:55)
[2016-07-21] MEDS: PRAVASTATIN 80 MG TABLET PO SCH (20:55)
[2016-07-21] MEDS: TRAZODONE 50 MG TAB PO SCH (20:55)
[2016-07-22] MEDS: NS/KCl 20 mEq 1,000 ML IV SCH ×2 (06:03→16:52)
[2016-07-22] MEDS: REGULAR INSULIN 100 UNITS/ML - 3 ML VIAL SQ SCH ×4 (06:07→21:16)
[2016-07-22] MEDS: PANTOPRAZOLE 40 MG TAB PO SCH (06:07)
[2016-07-22] MEDS: LEVOTHYROXINE 125 MCG (0.125 MG) TAB PO SCH (06:07)
[2016-07-22] MEDS: HALOPERIDOL 1 MG TAB PO SCH ×3 (06:07→21:16)
[2016-07-22] MEDS: NOVOLOG 70/30 MIX 100 UNITS/ML PEN SQ SCH ×2 (06:08→16:59)
[2016-07-22 06:51] LABS: AUTOMATED EOSINOPHIL 3.3 % (0-5); AUTOMATED LYMPH 35.6 % (17-44); AUTOMATED MONOCYTE 8.2 % (3-10); AUTOMATED NEUTROPHIL 51.9 % (45-76); MPV 8.9 fL (7.4-10.4)
[2016-07-22 07:00] LABS: BLOOD UREA NITROGEN 6 MG/DL (7-17); CALCULATED OSMOLALITY 258 MOs/Kg (270-290); CHLORIDE 100 mEq/L (98-107); GLUCOSE 102 mg/dL (70-99); SODIUM LEVEL 135 mEq/L (137-146)
[2016-07-22] MEDS: Verapamil 120 MG TAB PO SCH (08:20)
[2016-07-22] MEDS: LISINOPRIL 10 MG TAB PO SCH (08:21)
[2016-07-22] MEDS: GABAPENTIN 300 MG CAP PO SCH ×2 (08:21→21:16)
[2016-07-22] MEDS: FENOFIBRATE 145 MG TAB PO SCH (08:21)
[2016-07-22] MEDS: SERTRALINE HCL 100 MG TAB PO SCH (08:21)
[2016-07-22] MEDS: ACETAMINOPHEN 325 MG/TAB TABLET PO PRN ×2 (12:20→21:14)
[2016-07-22] MEDS: ENOXAPARIN 40 MG/0.4 ML PFS SQ SCH (16:54)
[2016-07-22] MEDS: CEFTRIAXONE 1 GM in D5W 100 ML IV SCH ×2 (16:56→16:58)
--- NOTE | 2016-07-22 20:23 | GENMEDPROG ---
Chief Complaint: Back hurting from bed. No more burning on urination. Complains of generalized weakness. Notes Reviewed: Yes: Events from last night noted and discussed with Clinical Staff Current Medication List: Reviewed Currently: Reports: Abdominal Pain. Denies: Cough, Wheezing, MICHAUD, SOB, Nausea and Vomiting, Chest Pain DVT Prophylaxis: Yes - Physical Examination Vital Signs and I&O: Last Vital Signs Temp 98.0 F 07/22/16 17:45 Pulse 70 07/22/16 17:45 Resp 20 07/22/16 17:45 BP 120/70 07/22/16 17:45 Pulse Ox 95 07/22/16 17:45 Oxygen Pulse Oxygen Saturation 95 O2 Device Nasal Cannula Oxygen Flow Rate 2 Fraction of Inspired Oxygen ( 29 FIO2) Intake & Output 07/19/16 07/20/16 07/21/16 07/22/16 23:59 23:59 23:59 23:59 Intake Total 1490 3842 2893 1641 Output Total 2650 4800 1650 Balance 1490 1192 -1907 -9 Patient's weight 82.242 kg 82.242 kg 83.489 kg 81.732 kg General: Alert, Cooperative, No acute distress, Well nourished. negative: Oriented x3, Well appearing (Chronically ill-appearing) HEENT: Normal, PERRLA, EOMI Neck: Non-tender, Full range of motion. negative: JVD Lymphatics: Normal (no adenopathy). negative: Adenopathy Respiratory: Normal - CTA (BBS clear to auscultation without adventitious sounds ). negative: Rhonchi Cardiovascular: Regular rate and rhythm, Normal S1, No Gallops,Rubs/Murmurs, Normal S2 GI: Normal bowel sounds, Soft, Non tender, No hepatospenomegaly Extremities/Musculoskeletal: Normal pulses. negative: Tenderness, Swelling, Edema Skin: Warm,Dry and Intact. negative: No rashes, No significant lesion Neurological: Normal speech, Strength at 5/5 X4 ext, Normal tone Psych/Mental Status: Confused Lab/DI/Studies Reviewed: 07/22/16 05:35 07/22/16 05:35 Laboratory Results - last 24 hr 07/21/16 07/22/16 07/22/16 20:44 05:35 05:35 WBC 6.5 RBC 3.35 L Hgb 10.0 L Hct 29.6 L MCV 89 MCH 29.7 MCHC 33.6 RDW 12.9 Plt Count 233 MPV 8.9 Neut % (Auto) 51.9 Lymph % (Auto) 35.6 [place] % (Auto) 8.2 Eos % (Auto) 3.3 Baso % (Auto) 1.0 Absolute Neuts (auto) 3.32 Absolute Lymphs (auto) 2.28 Sodium 135 L Potassium 4.5 Chloride 100 Carbon Dioxide 27 Anion Gap 13 BUN 6 L Creatinine 0.70 Estimated GFR (MDRD) > 60 Glucose 102 H POC Capillary Glucose 94 Calculated Osmolality 258 L Calcium 9.0 07/22/16 07/22/16 07/22/16 05:56 11:18 16:32 WBC RBC Hgb Hct MCV MCH MCHC RDW Plt Count MPV Neut % (Auto) Lymph % (Auto) [place] % (Auto) Eos % (Auto) Baso % (Auto) Absolute Neuts (auto) Absolute Lymphs (auto) Sodium Potassium Chloride Carbon Dioxide Anion Gap BUN Creatinine Estimated GFR (MDRD) Glucose POC Capillary Glucose 98 173 H 141 H Calculated Osmolality Calcium - Assessment (1) UTI (urinary tract infection) Acute N39.0 - URINARY TRACT INFECTION, SITE NOT SPECIFIED Qualifiers: Urinary tract infection type: acute cystitis Hematuria presence: without hematuria Qualified Code(s): N30.00 - Acute cystitis without hematuria Comment/Plan: Urine culture with multidrug resistant E coli. Continue IV Rocephin. Suspect as cause of mental status changes. (2) Metabolic encephalopathy Acute G93.41 - METABOLIC ENCEPHALOPATHY Comment/Plan: Less confused today but extremely fatigued and refuses to interact with physical therapy. Remains weak and disabled. Urine culture with multidrug resistant E coli. Continue IV fluids and IV Rocephin (3) Diabetes mellitus with neurological manifestations, uncontrolled Acute E11.49 - TYPE 2 DIABETES W OTH DIABETIC NEUROLOGICAL COMPLICATION; E11.65 - TYPE 2 DIABETES MELLITUS WITH HYPERGLYCEMIA Comment/Plan: Monitor blood sugars, continue her diabetic regimen (4) Dyslipidemia Chronic E78.5 - HYPERLIPIDEMIA, UNSPECIFIED Comment/Plan: Continue current medications (5) Hypertension Chronic I10 - ESSENTIAL (PRIMARY) HYPERTENSION Qualifiers: Hypertension type: essential hypertension Qualified Code(s): I10 - Essential (primary) hypertension Comment/Plan: Blood pressure slowly improving continue to monitor.. (6) Hypothyroidism Chronic E03.9 - HYPOTHYROIDISM, UNSPECIFIED Qualifiers: Hypothyroidism type: acquired Qualified Code(s): E03.9 - Hypothyroidism, unspecified Comment/Plan: Continue home dose Synthroid (7) COPD (chronic obstructive pulmonary disease) Acute J44.9 - CHRONIC OBSTRUCTIVE PULMONARY DISEASE, UNSPECIFIED Qualifiers: COPD type: unspecified COPD Qualified Code(s): J44.9 - Chronic obstructive pulmonary disease, unspecified Comment/Plan: No distress currently. She does wear oxygen at home. (8) Diastolic CHF, acute on chronic Acute I50.33 - ACUTE ON CHRONIC DIASTOLIC (CONGESTIVE) HEART FAILURE Comment /Plan: Continue present therapy for diastolic CHF. Case Care Discussed with: Patient, Nursing Staff, Resource Management Education/Counseling Given To: Patient Education/Counseling Given Regarding: Diagnosis Total Time: 37 min Critical Care: No Code: 31235 (12+)
[2016-07-22] MEDS: GLUCOSE (ORAL GEL) 15 GM TUBE PO PRN (21:13)
[2016-07-22] MEDS: PRAVASTATIN 80 MG TABLET PO SCH (21:16)
[2016-07-22] MEDS: TRAZODONE 50 MG TAB PO SCH (21:17)
[2016-07-22] MEDS: AMITRIPTYLINE 50 MG TAB PO SCH (21:17)
[2016-07-23] MEDS: NS/KCl 20 mEq 1,000 ML IV SCH ×4 (02:56→20:35)
[2016-07-23] MEDS: REGULAR INSULIN 100 UNITS/ML - 3 ML VIAL SQ SCH ×4 (05:53→21:17)
[2016-07-23] MEDS: NOVOLOG 70/30 MIX 100 UNITS/ML PEN SQ SCH ×2 (06:10→16:23)
[2016-07-23] MEDS: LEVOTHYROXINE 125 MCG (0.125 MG) TAB PO SCH (06:11)
[2016-07-23] MEDS: PANTOPRAZOLE 40 MG TAB PO SCH (06:11)
[2016-07-23] MEDS: HALOPERIDOL 1 MG TAB PO SCH ×3 (06:11→20:34)
[2016-07-23] MEDS: SERTRALINE HCL 100 MG TAB PO SCH (08:12)
[2016-07-23] MEDS: Verapamil 120 MG TAB PO SCH (08:12)
[2016-07-23] MEDS: GABAPENTIN 300 MG CAP PO SCH ×2 (08:12→20:34)
[2016-07-23] MEDS: LISINOPRIL 10 MG TAB PO SCH (08:12)
[2016-07-23] MEDS: FENOFIBRATE 145 MG TAB PO SCH (08:13)
--- NOTE | 2016-07-23 11:13 | GENMEDPROG ---
Chief Complaint: Only able to walk a few feet with the assistance of physical therapy today and clearly will need rehab at the local skilled nursing. Notes Reviewed: Yes: Events from last night noted and discussed with Clinical Staff Current Medication List: Reviewed Currently: Reports: Abdominal Pain. Denies: Cough, Wheezing, MICHAUD, SOB, Nausea and Vomiting, Chest Pain DVT Prophylaxis: Yes - Physical Examination Vital Signs and I&O: Last Vital Signs Temp 98.2 F 07/23/16 06:01 Pulse 69 07/23/16 06:01 Resp 20 07/23/16 06:01 BP 122/65 07/23/16 06:01 Pulse Ox 95 07/23/16 08:20 Oxygen Pulse Oxygen Saturation 95 O2 Device Nasal Cannula Oxygen Flow Rate 2 Fraction of Inspired Oxygen ( FIO2) Intake & Output 07/20/16 07/21/16 07/22/16 07/23/16 23:59 23:59 23:59 23:59 Intake Total 543 824 Output Total 400 2500 Balance 143 -1676 Patient's weight 82.582 kg General: Alert, Cooperative, No acute distress, Well nourished. negative: Oriented x3, Well appearing (Chronically ill-appearing) HEENT: Normal, PERRLA, EOMI Neck: Non-tender, Full range of motion. negative: JVD Lymphatics: Normal (no adenopathy). negative: Adenopathy Respiratory: Normal - CTA (BBS clear to auscultation without adventitious sounds ). negative: Rhonchi Cardiovascular: Regular rate and rhythm, Normal S1, No Gallops,Rubs/Murmurs, Normal S2 GI: Normal bowel sounds, Soft, Non tender, No hepatospenomegaly Extremities/Musculoskeletal: Normal pulses. negative: Tenderness, Swelling, Edema Skin: Warm,Dry and Intact. negative: No rashes, No significant lesion Neurological: Normal speech, Strength at 5/5 X4 ext, Normal tone Psych/Mental Status: Confused Lab/DI/Studies Reviewed: 07/22/16 05:35 07/22/16 05:35 Laboratory Results - last 24 hr 07/22/16 07/22/16 07/22/16 11:18 16:32 21:09 POC Capillary Glucose 173 H 141 H 60 L 07/22/16 07/23/16 21:26 04:47 POC Capillary Glucose 74 80 - Assessment (1) UTI (urinary tract infection) Acute N39.0 - URINARY TRACT INFECTION, SITE NOT SPECIFIED Qualifiers: Urinary tract infection type: acute cystitis Hematuria presence: without hematuria Qualified Code(s): N30.00 - Acute cystitis without hematuria Comment/Plan: Urine culture with multidrug resistant E coli. Continue IV Rocephin. Suspect as cause of mental status changes. Informed [employer] that she will need an additional 3 days of IV Rocephin at the skilled nursing to which she is discharged. (2) Ambulatory dysfunction Acute R26.2 - DIFFICULTY IN WALKING, NOT ELSEWHERE CLASSIFIED Comment/Plan: Ambulatory dysfunction is acutely worse with her infection. Anticipate need skilled nursing placement for 3 weeks post discharge. 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 (5) Dyslipidemia Chronic E78.5 - HYPERLIPIDEMIA, UNSPECIFIED Comment/Plan: Continue current medications (6) Hypothyroidism Chronic E03.9 - HYPOTHYROIDISM, UNSPECIFIED Qualifiers: Hypothyroidism type: acquired Qualified Code(s): E03.9 - Hypothyroidism, unspecified Comment/Plan: Continue home dose Synthroid (7) COPD (chronic obstructive pulmonary disease) Acute J44.9 - CHRONIC OBSTRUCTIVE PULMONARY DISEASE, UNSPECIFIED Qualifiers: COPD type: unspecified COPD Qualified Code(s): J44.9 - Chronic obstructive pulmonary disease, unspecified Comment/Plan: No distress currently. She does wear oxygen at home. (8) Diastolic CHF, acute on chronic Acute I50.33 - ACUTE ON CHRONIC DIASTOLIC (CONGESTIVE) HEART FAILURE Comment /Plan: Continue present therapy for diastolic CHF. (9) Metabolic encephalopathy Acute G93.41 - METABOLIC ENCEPHALOPATHY Comment/Plan: Less confused today but extremely fatigued and refuses to interact with physical therapy. Remains weak and disabled. Urine culture with multidrug resistant E coli. Continue IV fluids and IV Rocephin Disposition Plan: october d/c in am to local [facility] Facility Case Care Discussed with: Patient, Nursing Staff, Resource Management Education/Counseling Given To: Patient Education/Counseling Given Regarding: Diagnosis Total Time: 38 min Critical Care: No Code: 98084 (12+)
[2016-07-23] MEDS: ACETAMINOPHEN 325 MG/TAB TABLET PO PRN (15:57)
[2016-07-23] MEDS: CEFTRIAXONE 1 GM in D5W 100 ML IV SCH (16:22)
[2016-07-23] MEDS: ENOXAPARIN 40 MG/0.4 ML PFS SQ SCH (16:23)
[2016-07-23] MEDS: TRAZODONE 50 MG TAB PO SCH (20:34)
[2016-07-23] MEDS: PRAVASTATIN 80 MG TABLET PO SCH (20:34)
[2016-07-23] MEDS: AMITRIPTYLINE 50 MG TAB PO SCH (20:34)
[2016-07-23] MEDS: GLUCOSE (ORAL GEL) 15 GM TUBE PO PRN ×2 (21:17→21:34)
[2016-07-24] MEDS: NS/KCl 20 mEq 1,000 ML IV SCH ×3 (00:27→10:33)
[2016-07-24] MEDS: HALOPERIDOL 1 MG TAB PO SCH (06:05)
[2016-07-24] MEDS: PANTOPRAZOLE 40 MG TAB PO SCH (06:06)
[2016-07-24] MEDS: LEVOTHYROXINE 125 MCG (0.125 MG) TAB PO SCH (06:06)
[2016-07-24] MEDS: REGULAR INSULIN 100 UNITS/ML - 3 ML VIAL SQ SCH ×2 (06:06→12:50)
[2016-07-24] MEDS ORDERED: NOVOLOG 70/30 MIX 100 UNITS/ML PEN SQ SCH ×2 (07:00→17:00)
[2016-07-24] MEDS: Verapamil 120 MG TAB PO SCH (07:44)
[2016-07-24] MEDS: GABAPENTIN 300 MG CAP PO SCH (07:44)
[2016-07-24] MEDS: FENOFIBRATE 145 MG TAB PO SCH (07:45)
[2016-07-24] MEDS: SERTRALINE HCL 100 MG TAB PO SCH (07:45)
[2016-07-24] MEDS: LISINOPRIL 10 MG TAB PO SCH (07:45)
--- NOTE | 2016-07-24 11:24 | PCM.DCS92 ---
- Final/Secondary Discharge Diagnosis (1) UTI (urinary tract infection) Acute N39.0 - URINARY TRACT INFECTION, SITE NOT SPECIFIED Present on Admission: Yes acute cystitis without hematuria N30.00 - Acute cystitis without hematuria Comment: Urine culture with multidrug resistant E coli. Continue IV Rocephin. Suspect as cause of mental status changes. Informed workforce planner that she will need an additional 3 days of IV Rocephin at the senior care to which she is discharged. (2) Ambulatory dysfunction Acute R26.2 - DIFFICULTY IN WALKING, NOT ELSEWHERE CLASSIFIED Comment: Ambulatory dysfunction is acutely worse with her infection. Anticipate need senior care placement for 3 weeks post discharge. (3) Diabetes mellitus with neurological manifestations, uncontrolled Acute E11.49 - TYPE 2 DIABETES W OTH DIABETIC NEUROLOGICAL COMPLICATION; E11.65 - TYPE 2 DIABETES MELLITUS WITH HYPERGLYCEMIA Comment: Monitor blood sugars, continue her diabetic regimen (4) Hypothyroidism Chronic E03.9 - HYPOTHYROIDISM, UNSPECIFIED acquired E03.9 - Hypothyroidism, unspecified Comment: Continue home dose Synthroid (5) Hypertension Chronic I10 - ESSENTIAL (PRIMARY) HYPERTENSION essential hypertension I10 - Essential (primary) hypertension Comment: Blood pressure slowly improving continue to monitor.. (6) Dyslipidemia Chronic E78.5 - HYPERLIPIDEMIA, UNSPECIFIED Comment: Continue current medications (7) COPD (chronic obstructive pulmonary disease) Acute J44.9 - CHRONIC OBSTRUCTIVE PULMONARY DISEASE, UNSPECIFIED Present on Admission: Yes unspecified COPD J44.9 - Chronic obstructive pulmonary disease, unspecified Comment: No distress currently. She does wear oxygen at home. (8) Diastolic CHF, acute on chronic Acute I50.33 - ACUTE ON CHRONIC DIASTOLIC (CONGESTIVE) HEART FAILURE Comment : Continue present therapy for diastolic CHF. (9) Metabolic encephalopathy Acute G93.41 - METABOLIC ENCEPHALOPATHY Present on Admission: Yes Comment: Less confused today but extremely fatigued and refuses to interact with physical therapy. Remains weak and disabled. Urine culture with multidrug resistant E coli. Continue IV fluids and IV Rocephin Discharge Condition: Improved Cognitive Discharge Status: Cognitive deficits prevent decision making for safety. Fuctional Discharge Status: Walker Assistance Physician Follow up/Referrals: Cecilia Jose MD [Primary Care Provider] - One Month Aubrey Reno MD [Staff Physician] - Listed Time Home Medications / New Prescriptions: New Ceftriaxone [Rocephin] 1 gm IV Q24H #3 vial Continue Pravastatin Sodium 80 mg PO HS Sertraline HCl 150 mg PO DAILY Verapamil HCl [Verapamil ER] 240 mg PO DAILY Trazodone HCl 150 mg PO QHS Fenofibrate 160 mg PO DAILY Levothyroxine [Synthroid, Levoxyl] 125 mcg PO DAILY #30 tablet Insulin Novolog 70/30 Mix [Novolog 70-30 Insulin Mix] 30 unit SQ BID Lisinopril [Zestril] 10 mg PO DAILY Gabapentin 300 mg PO BID Amitriptyline HCl 150 mg PO QHS Trimethoprim 200 mg PO QHS Omeprazole [Prilosec] 20 mg PO DAILY Zolpidem Tartrate [Ambien] 5 mg PO QHS PRN PRN Reason: Sleep Or Insomnia Haloperidol 2 mg PO TID #30 tablet Alprazolam 0.5 mg PO QID PRN #60 tablet PRN Reason: Anxiety Discharge Home Medication List Fenofibrate 160 mg PO DAILY 12/21/14 [History Confirmed 07/19/16 Last Taken ] Pravastatin Sodium 80 mg PO HS 12/21/14 [History Confirmed 07/19/16 Last Taken 07/18/16] Sertraline HCl 150 mg PO DAILY 12/21/14 [History Confirmed 07/19/16 Last Taken 07/19/16] Trazodone HCl 150 mg PO QHS 12/21/14 [History Confirmed 07/19/16 Last Taken ] Verapamil HCl [Verapamil ER] 240 mg PO DAILY 12/21/14 [History Confirmed Last Taken 07/19/16] Levothyroxine [Synthroid, Levoxyl] 125 mcg PO DAILY #30 tablet 01/01/15 [Rx Confirmed 07/19/16 Last Taken 07/19/16] Insulin Novolog 70/30 Mix [Novolog 70-30 Insulin Mix] 30 unit SQ BID 05/04/15 [ History Confirmed 07/19/16 Last Taken 07/19/16] Amitriptyline HCl 150 mg PO QHS 03/30/16 [History Confirmed 07/19/16 Last Taken 07/18/16] Gabapentin 300 mg PO BID 03/30/16 [History Confirmed 07/19/16 Last Taken ] Lisinopril [Zestril] 10 mg PO DAILY 03/30/16 [History Confirmed 07/19/16 Last Taken 07/18/16] Omeprazole [Prilosec] 20 mg PO DAILY 03/30/16 [History Confirmed 07/19/16 Last Taken 07/19/16] Trimethoprim 200 mg PO QHS 03/30/16 [History Confirmed 07/19/16 Last Taken 07/18] Zolpidem Tartrate [Ambien] 5 mg PO QHS PRN 07/19/16 [History Confirmed 07/19/16 Last Taken 07/18/16] Alprazolam 0.5 mg PO QID PRN #60 tablet 07/24/16 [Rx Last Taken Unknown] Ceftriaxone [Rocephin] 1 gm IV Q24H #3 vial 07/24/16 [Rx Last Taken Unknown] Haloperidol 2 mg PO TID #30 tablet 07/24/16 [Rx Last Taken Unknown] 07/22/16 05:35 07/22/16 05:35 Laboratory Results - last 24 hr 07/23/16 07/23/16 07/23/16 15:55 21:14 21:30 POC Capillary Glucose 131 H 60 L 55 L 07/23/16 07/23/16 07/24/16 21:51 23:03 05:33 POC Capillary Glucose 58 L 84 98 07/24/16 11:16 POC Capillary Glucose 133 H Microbiology 07/19/16 13:17 Urine - In/Out Catheter Urine Culture - Final Escherichia coli or multi drug-resistant to the quinolones Augmentin and Mefoxin. O2 Device: Nasal Cannula Oxygen to be used after Discharge: Continuous Diet at Discharge: 1800 Calorie Activity: As Tolerated Discontinue use of:: All Types of Tobacco - DC Summary Notes HPI/Notes: Ms Zambrano is a 71-year-old white female with multiple chronic medical problems who is brought to the emergency room by her with several days of worsening mental status and declining ambulatory function. He says this is similar to admission to the hospital back in March when she had a urinary tract infection and became very weak. At that time she had to go for short- term rehab post discharge. She has been home and has been ambulatory up until this past week. He says baseline her cognitive status is normal. In the emergency room she does have a urinary tract infection. She is confused and unable to provide any history. Given her mental status changes and urinary tract infection she will be admitted to the hospital for further evaluation and management Hospital Course Note:: Discharge summary on patient named SHELDON ZAMBRANO admitted to [facility] on 07/19/16 by Tato Campbell MD. Date of discharge is 07/24/2016. She is admitted with metabolic encephalopathy similar to March when she was found have urinary tract infection. Urine culture showed E coli multi drug- resistant to quinolones and Augmentin but sensitive to Rocephin which she was given. She tolerated this well over the ensuing days but appears to need 3 more days worth of that antibiotic. Mental status improved but her ambulatory function was markedly limited such that she was only able to move 3 feet yesterday. Transfer to [facility] today was achieved by our workforce planner and patient will happily go there under the care of Dr. Reno. CC: Dr. Shadia Jose Total Time: 41 min Code: 98800 (>30min.) - Physical Exam Vital Signs: Last Vital Signs Temp 97.9 F 07/24/16 06:00 Pulse 75 07/24/16 06:00 Resp 18 07/24/16 06:00 BP 140/72 07/24/16 06:00 Pulse Ox 93 07/24/16 10:04 Oxygen Pulse Oxygen Saturation 93 O2 Device Nasal Cannula Oxygen Flow Rate 2 Fraction of Inspired Oxygen ( FIO2) Constitutional: Alert, Distress. negative: Well appearing (Acutely ill- appearing) Oriented to: Person, Place - HEENT Head: Normal ( normocephalic) Eye: Normal (PERRL, EOMI, Sclera white) Oropharynx: Normal (Pharynx:Moist without exudate,Gums-no swelling) ENT EAC: Normal TMJ: Normal Nose: No Symptoms Reported (septum midline) - Respiratory/Cardiovascular Respiratory: Normal - CTA (BBS clear to auscultation without adventitious sounds ). negative: Rhonchi Cardiovascular: Normal (RRR , Normal S1, S2. No murmurs, rubs, or gallops. PMI non-displaced. Carotids: no carotid bruits. No bradycardia or tachycardia. DP pulses 2+ bilaterally.) - GI Auscultation: Normal (NABS) Palpation: Normal (Soft,No rebound or guarding, non distended) Tenderness: Mild, Suprapubic - Musculoskeletal Back: Normal (Non-Tender). negative: Abrasion Extremities: Normal (Normal tone, Pulses 2+ No cyanosis or edema, FROM) - Integumentary Skin: Normal (Warm dry no rashes) Lymphatics: Normal (no adenopathy). negative: Adenopathy - Neurologic Memory Impaired: Short-term. negative: Long-term Motor Function: Normal (Motor 5/5 throughout.Normal tone, Pulses 2+ No cyanosis or edema, FROM) Cranial Nerve: Normal (CN II-XII intact sensation, strength 5/5) Cerebellar: Normal Mood Description: Normal Thought: Coherent Perception: Normal
[2016-07-24 14:09] VITALS: BP 159/80; PULSE 78; TEMP 98.4
== END 2016-07-24 15:53 | DRG 689 ==
LOC: ED 12:59 → MPS3 17:24 → INTOOBSV 17:24 → OBSVTOIN 07-22 20:20
PROVIDERS: ADMIT Hospitalist; ATTEND Internal Medicine
PROC: 4A033R1 Measurement of Arterial Saturation, Peripheral, Percutaneous Approach (ICD-10-PCS; principal; 2016-07-19)
DX: N30.00 Acute cystitis without hematuria (principal); I50.33 Acute on chronic diastolic (congestive) heart failure; G93.41 Metabolic encephalopathy; F03.91 Unspecified dementia, unspecified severity, with behavioral disturbance; B96.20 Unspecified Escherichia coli [E. coli] as the cause of diseases classified elsewhere; Z16.24 Resistance to multiple antibiotics; R26.2 Difficulty in walking, not elsewhere classified; E11.49 Type 2 diabetes mellitus with other diabetic neurological complication; E11.65 Type 2 diabetes mellitus with hyperglycemia; E03.9 Hypothyroidism, unspecified; J44.9 Chronic obstructive pulmonary disease, unspecified; I11.0 Hypertensive heart disease with heart failure; R53.1 Weakness; E78.00 Pure hypercholesterolemia, unspecified; J45.909 Unspecified asthma, uncomplicated; K21.9 Gastro-esophageal reflux disease without esophagitis; F41.9 Anxiety disorder, unspecified; F20.9 Schizophrenia, unspecified; Z87.440 Personal history of urinary (tract) infections; Z90.710 Acquired absence of both cervix and uterus; Z88.2 Allergy status to sulfonamides; Z79.4 Long term (current) use of insulin
CPT/HCPCS: 36415; 36600; 71010; 71275; 80048; 80053; 81001; 82043; 82550; 82803; 82962; 83036; 83605; 83880; 84484; 85025; 85027; 85610; 85730; 87040; 87077; 87086; 87186; 93005; 94664; 96361; 96365; 96372; 96375; 97161; 99285; A9698; G0378; J0696; J1650; J1815; J2270; J2405; J3490; J7040; J7060